=== PATIENT | female | born 1995 | race Caucasian/White ===

== ENCOUNTER 2017-12-06 10:59 | Emergency (ER) | payer SELFPAY ==
[~2017-12-06] VITALS: Ht 172.7 cm; Wt 75.0 kg
[2017-12-06 11:00] VITALS: TEMP 98.2
[2017-12-06 12:11] VITALS: BP 109/62; PULSE 61
== END 2017-12-06 12:17 | disposition home or self-care (01) ==
LOC: COL.ER 10:59
DX: S50.11XA Contusion of right forearm, initial encounter (principal); W23.0XXA Caught, crushed, jammed, or pinched between moving objects, initial encounter; Y92.89 Other specified places as the place of occurrence of the external cause